=== PATIENT | male | born 1930 | race Caucasian/White ===

== ENCOUNTER 2019-07-10 15:23 | Inpatient (IN) | payer MEDICARE, MEDICAID ==
[~2019-07-10] VITALS: Ht 167.6 cm; Wt 64.4 kg
[2019-07-10 16:01] LABS: BASOPHILS # (AUTO) 0.1 K/uL (0.0-8.0); BASOPHILS % (AUTO) 0.9 % (0.0-2.0); EOSINOPHILS # (AUTO) 0.1 K/uL (0.0-0.7); EOSINOPHILS % (AUTO) 1.4 % (0.0-7.0); HEMATOCRIT 29.2 % (36.7-47.1); HEMOGLOBIN 9.6 g/dL (12.5-16.3); LYMPHOCYTES # (AUTO) 1.5 K/uL (20.0-40.0); LYMPHOCYTES % (AUTO) 23.1 % (20.5-51.5); MEAN CORPUSCULAR HEMOGLOBIN 26.3 uug (23.8-33.4); MEAN CORPUSCULAR HGB CONC 33 g/dL (32.5-36.3); MEAN CORPUSCULAR VOLUME 79.7 fL (73.0-96.2); MONOCYTES # (AUTO) 0.5 K/uL (2.0-10.0); NEUTROPHILS # (AUTO) 4.2 K/uL (1.8-8.9); NEUTROPHILS % (AUTO) 66.6 % (38.5-71.5); PLATELET COUNT (AUTO) 410 K/uL (152-348); RED BLOOD CELL COUNT(AUTO) 3.66 MIL/uL (4.06-5.63); WHITE BLOOD COUNT (AUTO) 6.3 K/uL (3.6-10.2)
[2019-07-10] MEDS ORDERED: DONE10TA44 PO (16:03)
[2019-07-10] MEDS ORDERED: MEMA10TA PO (16:03)
[2019-07-10] MEDS ORDERED: ARIP5TAB10 PO (16:03)
[2019-07-10] MEDS ORDERED: TEMA15CA PO (16:03)
[2019-07-10 16:05] LABS: CARBON DIOXIDE 26 mmol/L (21-32); CHLORIDE 109 mmol/L (98-107); CREATININE 1.5 mg/dL (0.6-1.3); GLUCOSE 101 mg/dL (74-106); POTASSIUM 3.7 mmol/L (3.5-5.1); UREA NITROGEN, BLOOD 20 mg/dL (7-18)
[2019-07-10 16:11] LABS: ETHANOL < 3 MG/DL (0-0)
[2019-07-10 16:15] LABS: ALANINE AMINOTRANSFERASE 12 U/L (16-63); ALKALINE PHOSPHATASE 70 U/L (50-136); ASPARTATE AMINOTRANSFERASE 14 U/L (15-37); BILIRUBIN,DIRECT 0.1 mg/dL (0.0-0.2); BILIRUBIN,TOTAL 0.4 mg/dL (0.2-1.0)
[2019-07-10 16:16] LABS: ACETAMINOPHEN < 2.0 ug/mL (10-30)
--- NOTE | 2019-07-10 16:24 | NUR ---
GRAND DAUGHTER AT BEDSIDE. Addendum: 07/10/19 at 1836 by JOSE FABI [phone]
[2019-07-10 16:27] LABS: *BILIRUBIN,URIN NEGATIVE (NEGATIVE); *BLOOD, URINE NEGATIVE (NEGATIVE); *CLARITY,URINE CLEAR (CLEAR); *COLOR,URINE YELLOW (YELLOW); *KETONES,URINE NEGATIVE (NEGATIVE); *UROBILINOGEN,URINE 0.2 E.U./dl (NORMAL); LEUKOCYTE ESTERASE ,URINE NEGATIVE (NEGATIVE); NITRITE, URINE NEGATIVE (NEGATIVE); UGLUCOSE NEGATIVE (NEGATIVE)
[2019-07-10 16:35] LABS: *AMPHETAMINE, URINE NEGATIVE (NEGATIVE); *BARBITURATE, URINE NEGATIVE (NEGATIVE); *CANNABINOID, URINE NEGATIVE (NEGATIVE); *COCCAINE, URINE NEGATIVE (NEGATIVE); *OPIATE, URINE NEGATIVE (NEGATIVE); *PHENCYCLIDINE SCREEN,URINE NEGATIVE (NEGATIVE)
[2019-07-10] MEDS ORDERED: IV NORMAL SALINE 500 ML BAG IV ONE (16:45)
--- NOTE | 2019-07-10 18:00 | NUR ---
PT DAUGHTER BROUGHT DINNER FOR PT.
--- NOTE | 2019-07-10 18:44 | NUR ---
PT TRANSFERED TO [facility] IN STABLE CONDITION. Addendum: 07/10/19 at 1847 by JOSE PT ACCOMPANED BY GRAND DAUGHTER
[2019-07-10] MEDS ORDERED: MAGNESIUM HYDROXIDE 30 ML LIQUID UDC PO PRN (19:45)
[2019-07-10] MEDS ORDERED: MAG HYDROX/AL HYDROX/SIMETH 30 ML LIQUID UDC PO PRN (19:45)
[2019-07-10] MEDS ORDERED: LORAZEPAM 0.5 MG TABLET PO PRN (19:45)
[2019-07-10] MEDS ORDERED: TEMAZEPAM 7.5 MG CAPSULE PO PRN (19:45)
[2019-07-10] MEDS ORDERED: ACETAMINOPHEN 325 MG TABLET PO PRN (19:45)
[2019-07-10 21:01] VITALS: BP 91/43
--- NOTE | 2019-07-10 22:00 | NUR ---
Admission Note: 89 y.o. U[place]ayan male (Uruguayan-speaking) brought to MHU from ER via wheelchair accompanied by ER staff and Pt family. Pt admitted on a 5150 for GD under the care of Dr Mckeon and Dr Bolaños with a dx of Psychosis. According to the 5150, Pt has been staying with his daughter as the primary caregiver the past 3 months, but is now unable to provide care d/t his aggression and unstable, erratic, confused behavior. Pt has an obsession with sharp objects, which have been removed by his daughter. Pt goes around the house cutting things, recently using a hatchet to cut objects. Pt has been eloping from home and unable to find his way home. Recently hospitalized at [facility] due to non-compliance with meds. Upon admission to the unit, Pt VS stable, denies pain, and in no apparent physical distress. Upon face to face evaluation, Pt is confrontational, agitated, argumentative, oppositional, and disoriented. With Uruguayan supervisor benzene refining present, Pt refused to sign any paperwork and demanded to �go home.� 5150 was explained to him with Uruguayan supervisor benzene refining that he is here involuntarily for 72 hours, and rules regarding unit and personal safety were explained to Pt. Staff explained to Pt that his belt, cell phone, and medication had to be placed in a safe, locked location. Pt stated he would not voluntarily give up his items, nor would he submit to any kind of body search or skin check. Security was called to wand Pt and assist with check of Pt�s clothing and contraband. With staff support, redirection and de-escalation, Pt reluctantly allowed himself to be searched and wanded, and allowed staff to retrieve the contraband items. A+Ox1 to self and knows he is in a hospital, but has poor insight into situation or reason for admission. Denies what is written on the Hold and exhibits some paranoia and stated staff are �just trying to take all of my things from me.� Affect is flat and guarded, speech is pressured, and mood is anxious and somewhat restless. Prn Restoril offered and refused, Pt remains restless. Paperwork co-signed with staff. Per family Pt has no access to firearms or any legal hx, unable to obtain smoking or substance use status. Skin assessment not completed at this time, Pt remains uncooperative with staff. Medical h/o dementia, anemia, renal insufficiency, BPH, throat CA, and umbilical hernia, NKA. Dr Mckeon and Dr Bolaños notified of admission, meds reconciled, orders received. Pt belongings inventoried, contraband placed in unit locker. Patient Rights handbook and Advisement given to Pt, rights and unit rule explained to Pt and Pt�s family. Pt oriented to the unit, the phone, the restrooms, and his room. Q 15 minute rounding initiated for safety.
[2019-07-11 07:30] VITALS: BP 133/43
[2019-07-11] MEDS: DIVALPROEX SPRINKLE 125 MG CAP.SPRINK PO SCH ×2 (13:45→17:00)
[2019-07-11 16:00] VITALS: BP 132/39
[2019-07-11 20:00] VITALS: BP 143/44
[2019-07-11] MEDS: risperiDONE-M 0.5 MG TAB.RAPDIS PO SCH (20:00)
[2019-07-11] MEDS: BENZTROPINE MESYLATE 0.5 MG TABLET PO SCH (20:00)
--- NOTE | 2019-07-12 07:19 | NUR ---
Fall Note: Pt found in the day room breaking the lock on the refrigerator. Pt refused to step away from the fridge and became aggressive when staff escorted him out of the room to his room. Pt jerked away from staff member, lost his balance, and hit his head on the wall on the way down to the floor. VS taken, initially 160/50, 65, then 141/46, 66, and finally 136/44, 63. Pt denies pain, nuero/circ intact. Dr Villegas notified, ordered neuro checks q [address] Mckeon notified and CT of the head ordered. Voicemail left for Pt's granddaughter Patsy. Remains at baseline mental status. Pt pacing around the unit currently, refuses to follow staff direction to sit for his own safety. Nursing bleach supervisor aware.
[2019-07-12 07:30] VITALS: BP 133/35
[2019-07-12] MEDS: DIVALPROEX SPRINKLE 125 MG CAP.SPRINK PO SCH ×3 (09:00→17:06)
[2019-07-12] MEDS: BENZTROPINE MESYLATE 0.5 MG TABLET PO SCH ×2 (11:05→20:30)
--- NOTE | 2019-07-12 15:13 | NUR ---
Initial discharge note Patient currently lives with his daughter, Tessa Perez [[phone]] at her home [ [address], [place] [address]; [phone]]. Per patient granddaughter, Patsy Aquino [[phone]], they would like locked placement for patient which is for his best interest. SW will continue to work with patient, family, and MD to form a safe and appropriate discharge plan. SW will form a safe a proper discharge plan.
[2019-07-12 16:00] VITALS: BP 138/44
--- NOTE | 2019-07-12 20:00 | NUR ---
RECEIVED PATIENT IN THE HALLWAY, HE IS NOTED SPEAKING IN GREEK. NOTED HYPERVERBAL, ANXIOUS, DEMANDING TO TALK TO HER DAUGHTER, EASILY IRRITABLE. POOR INSIGHT INTO HIS ADMISSION TO MHU. PATIENT WAS GIVEN THE PHONE TO TALK TO DAUGHTER. AFTER TALKING TO DAUGHTER HE WAS ABLE TO CALM DOWN. SAFETY AND FALL PRECAUTION IN PLACE. PATIENT IS REASSURED FOR HIS SAFETY. WILL CONTINUE TO MONITOR.
[2019-07-12 20:04] VITALS: BP 143/40
[2019-07-12] MEDS: risperiDONE-M 0.5 MG TAB.RAPDIS PO SCH (20:28)
--- NOTE | 2019-07-12 20:40 | NUR ---
PATIENT WAS SEEN BY DR ELY. HE WAS ABLE TO TAKE HIS QHS MEDICATION. HE IS NOTED CALM AT THIS TIME. WILL CONTINUE TO MONITOR.
--- NOTE | 2019-07-12 20:45 | NUR ---
PATIENT WAS SEEN BTY
[2019-07-13 07:30] VITALS: BP 110/42
[2019-07-13] MEDS: DIVALPROEX SPRINKLE 125 MG CAP.SPRINK PO SCH ×3 (09:11→17:57)
[2019-07-13 16:00] VITALS: BP 139/50
[2019-07-13 20:20] VITALS: BP 140/50
[2019-07-13] MEDS: risperiDONE-M 0.5 MG TAB.RAPDIS PO SCH (20:41)
[2019-07-13] MEDS: BENZTROPINE MESYLATE 0.5 MG TABLET PO SCH (20:41)
[2019-07-14 07:30] VITALS: BP 110/36
[2019-07-14] MEDS: DIVALPROEX SPRINKLE 125 MG CAP.SPRINK PO SCH ×3 (09:18→16:42)
[2019-07-14 16:00] VITALS: BP 127/34
[2019-07-14 20:23] VITALS: BP 148/40
[2019-07-14] MEDS: risperiDONE-M 0.5 MG TAB.RAPDIS PO SCH (21:01)
[2019-07-14] MEDS: BENZTROPINE MESYLATE 0.5 MG TABLET PO SCH (21:01)
[2019-07-15 07:30] VITALS: BP 147/52
[2019-07-15] MEDS: DIVALPROEX SPRINKLE 125 MG CAP.SPRINK PO SCH ×3 (08:38→17:35)
[2019-07-15 16:00] VITALS: BP 146/42
[2019-07-15] MEDS: BENZTROPINE MESYLATE 0.5 MG TABLET PO SCH (19:57)
[2019-07-15] MEDS: risperiDONE-M 0.5 MG TAB.RAPDIS PO SCH (19:57)
[2019-07-15 20:29] VITALS: BP 145/82
[2019-07-16 07:39] LABS: BASOPHILS # (AUTO) 0.1 K/uL (0.0-8.0); BASOPHILS % (AUTO) 0.8 % (0.0-2.0); EOSINOPHILS # (AUTO) 0.1 K/uL (0.0-0.7); EOSINOPHILS % (AUTO) 1.4 % (0.0-7.0); HEMATOCRIT 29.3 % (36.7-47.1); HEMOGLOBIN 9.7 g/dL (12.5-16.3); LYMPHOCYTES # (AUTO) 1.1 K/uL (20.0-40.0); LYMPHOCYTES % (AUTO) 16.1 % (20.5-51.5); MEAN CORPUSCULAR HEMOGLOBIN 26.9 uug (23.8-33.4); MEAN CORPUSCULAR HGB CONC 33 g/dL (32.5-36.3); MEAN CORPUSCULAR VOLUME 81.5 fL (73.0-96.2); MONOCYTES # (AUTO) 0.4 K/uL (2.0-10.0); MONOCYTES % (AUTO) 6.7 % (0.0-11.0); PLATELET COUNT (AUTO) 375 K/uL (152-348); WHITE BLOOD COUNT (AUTO) 6.7 K/uL (3.6-10.2)
[2019-07-16 07:45] LABS: IRON, SERUM 41 ug/dL (50-175)
[2019-07-16 07:53] VITALS: BP 141/49
[2019-07-16 08:24] LABS: THYROID STIMULATING HORMONE 3.048 mIU/mL (0.358-3.740)
[2019-07-16 08:28] LABS: ALANINE AMINOTRANSFERASE 8 U/L (16-63); ALKALINE PHOSPHATASE 70 U/L (50-136); ASPARTATE AMINOTRANSFERASE 15 U/L (15-37); BILIRUBIN,TOTAL 0.5 mg/dL (0.2-1.0); CARBON DIOXIDE 28 mmol/L (21-32); CHLORIDE 109 mmol/L (98-107); CHOLESTEROL 181 mg/dL (<200); CREATININE 1.2 mg/dL (0.6-1.3); FERRITIN 15 ng/mL (26-388); GLUCOSE 89 mg/dL (74-106); HDL CHOLESTEROL 44 mg/dL (40-60); TOTAL PROTEIN, SERUM 6.2 g/dL (6.4-8.2); TRIGLYCERIDES 120 MG/DL (30-150); UREA NITROGEN, BLOOD 19 mg/dL (7-18); URIC ACID 5.9 mg/dL (3.5-7.2)
[2019-07-16] MEDS: DIVALPROEX SPRINKLE 125 MG CAP.SPRINK PO SCH ×3 (08:30→16:23)
[2019-07-16 08:52] LABS: CREATINE KINASE, TOTAL 47 U/L (39-308)
[2019-07-16 15:44] VITALS: BP 119/48
[2019-07-16] MEDS: BENZTROPINE MESYLATE 0.5 MG TABLET PO SCH (19:55)
[2019-07-16] MEDS: risperiDONE-M 0.5 MG TAB.RAPDIS PO SCH (19:55)
[2019-07-16 20:26] VITALS: BP 149/43
[2019-07-17 07:42] VITALS: BP 110/48
[2019-07-17] MEDS: AMLODIPINE 2.5 MG TABLET PO SCH (09:00)
[2019-07-17] MEDS: FAMOTIDINE 20 MG TABLET PO SCH (09:05)
[2019-07-17] MEDS: DIVALPROEX SPRINKLE 125 MG CAP.SPRINK PO SCH ×3 (09:05→16:36)
[2019-07-17] MEDS: CYANOCOBALAMIN 1,000 MCG TABLET PO SCH (09:05)
[2019-07-17] MEDS: MULTIVITAMINS,THERAPEUTIC TABLET PO SCH (09:05)
[2019-07-17 15:48] VITALS: BP 168/48
[2019-07-17 20:00] VITALS: BP 133/45
[2019-07-17] MEDS ORDERED: risperiDONE-M 0.5 MG TAB.RAPDIS PO SCH (20:00)
[2019-07-17] MEDS: BENZTROPINE MESYLATE 0.5 MG TABLET PO SCH (20:47)
[2019-07-18 07:30] VITALS: BP 124/47
[2019-07-18 08:06] LABS: A/G RATIO 1.2 (0.7-1.7); ALBUMIN 3.1 g/dL (2.9-4.4); ALPHA-1-GLOBULIN 0.2 g/dL (0.0-0.4); ALPHA-2-GLOBULIN 0.7 g/dL (0.4-1.0); BETA GLOBULIN 0.9 g/dL (0.7-1.3); GAMMA GLOBULIN 0.8 g/dL (0.4-1.8); GLOBULIN, TOTAL 2.6 g/dL (2.2-3.9); M-SPIKE Not Observed g/dL (Not Observed)
[2019-07-18] MEDS: MULTIVITAMINS,THERAPEUTIC TABLET PO SCH (08:38)
[2019-07-18] MEDS: DIVALPROEX SPRINKLE 125 MG CAP.SPRINK PO SCH ×3 (08:38→16:03)
[2019-07-18] MEDS: FAMOTIDINE 20 MG TABLET PO SCH (08:38)
[2019-07-18] MEDS: CYANOCOBALAMIN 1,000 MCG TABLET PO SCH (08:38)
[2019-07-18] MEDS: AMLODIPINE 2.5 MG TABLET PO SCH (08:39)
[2019-07-18 16:00] VITALS: BP 135/45
--- NOTE | 2019-07-18 16:40 | NUR ---
PATIENT AOX3, DENIES PAIN, DENIES ANY DISTRESS BEEN COOPERATIVE AND COMPLIANT, PATIENT DENIES SI AND HI, VISITED BY GRAND DAUGHTER
[2019-07-18 20:46] VITALS: BP 140/98
[2019-07-18] MEDS: BENZTROPINE MESYLATE 0.5 MG TABLET PO SCH (20:46)
[2019-07-18] MEDS: risperiDONE-M 0.5 MG TAB.RAPDIS PO SCH (20:46)
[2019-07-19 06:54] LABS: BASOPHILS % (AUTO) 0.8 % (0.0-2.0); EOSINOPHILS # (AUTO) 0.1 K/uL (0.0-0.7); EOSINOPHILS % (AUTO) 2.3 % (0.0-7.0); HEMATOCRIT 29.3 % (36.7-47.1); HEMOGLOBIN 9.5 g/dL (12.5-16.3); LYMPHOCYTES # (AUTO) 1.2 K/uL (20.0-40.0); LYMPHOCYTES % (AUTO) 19.9 % (20.5-51.5); MEAN CORPUSCULAR HEMOGLOBIN 26.5 uug (23.8-33.4); MEAN CORPUSCULAR HGB CONC 33 g/dL (32.5-36.3); MEAN CORPUSCULAR VOLUME 81.7 fL (73.0-96.2); MONOCYTES # (AUTO) 0.6 K/uL (2.0-10.0); MONOCYTES % (AUTO) 10.9 % (0.0-11.0); NEUTROPHILS # (AUTO) 3.9 K/uL (1.8-8.9); NEUTROPHILS % (AUTO) 66.1 % (38.5-71.5); PLATELET COUNT (AUTO) 304 K/uL (152-348); RED BLOOD CELL COUNT(AUTO) 3.58 MIL/uL (4.06-5.63)
[2019-07-19 07:10] LABS: CARBON DIOXIDE 27 mmol/L (21-32); CHLORIDE 109 mmol/L (98-107); CREATININE 1.2 mg/dL (0.6-1.3); GLUCOSE 94 mg/dL (74-106); PHOSPHOROUS 3.5 mg/dL (2.5-4.9); POTASSIUM 3.7 mmol/L (3.5-5.1); UREA NITROGEN, BLOOD 24 mg/dL (7-18)
[2019-07-19 07:30] VITALS: BP 118/36
[2019-07-19] MEDS: DIVALPROEX SPRINKLE 125 MG CAP.SPRINK PO SCH ×4 (08:57→21:17)
[2019-07-19] MEDS: FAMOTIDINE 20 MG TABLET PO SCH (08:57)
[2019-07-19] MEDS: CYANOCOBALAMIN 1,000 MCG TABLET PO SCH (08:57)
[2019-07-19] MEDS: AMLODIPINE 2.5 MG TABLET PO SCH (08:58)
[2019-07-19] MEDS: MULTIVITAMINS,THERAPEUTIC TABLET PO SCH (09:00)
[2019-07-19 16:00] VITALS: BP 130/38
--- NOTE | 2019-07-19 16:21 | NUR ---
FIREARMS REPORT: Weatherization Coordinator completed and submitted a [employer] firearms report for 5250 grave disability certification. A copy of report has been placed in patient chart.
[2019-07-19 20:00] VITALS: BP 141/56
[2019-07-19] MEDS: risperiDONE-M 0.5 MG TAB.RAPDIS PO SCH (20:12)
[2019-07-19] MEDS: BENZTROPINE MESYLATE 0.5 MG TABLET PO SCH (20:12)
--- NOTE | 2019-07-19 21:34 | NUR ---
RECEIVED PATIENT IN ROOM AWAKE, PATIENT IS CALM AND PLEASANT UPON APPROACH. HE IS GERMAN SPEAKER. CONTINUE TO BE COMPLIANT WITH MEDICATION. SAFETY AND FALL PRECAUTION IN PLACE. WILL CONTINUE TO MONITOR. BED IN LOWEST POSITION, BED LOCKED, AND BED ALARM ON WHILE IN BE.
[2019-07-20 07:30] VITALS: BP 122/45
[2019-07-20] MEDS: FAMOTIDINE 20 MG TABLET PO SCH (09:00)
[2019-07-20] MEDS: MULTIVITAMINS,THERAPEUTIC TABLET PO SCH (09:00)
[2019-07-20] MEDS: CYANOCOBALAMIN 1,000 MCG TABLET PO SCH (09:00)
[2019-07-20] MEDS: risperiDONE-M 0.5 MG TAB.RAPDIS PO SCH ×2 (09:00→20:00)
[2019-07-20] MEDS: AMLODIPINE 2.5 MG TABLET PO SCH (09:13)
[2019-07-20] MEDS: DIVALPROEX SPRINKLE 125 MG CAP.SPRINK PO SCH ×4 (09:14→20:38)
--- NOTE | 2019-07-20 11:00 | NUR ---
Gps/Fire Ranger-Pacing back and forth the hallway, selective of his routine am meds. Encouraged to eat in the dinning room, offered fluids
[2019-07-20 16:00] VITALS: BP 127/47
[2019-07-20] MEDS: BENZTROPINE MESYLATE 0.5 MG TABLET PO SCH (20:00)
[2019-07-20 20:35] VITALS: BP 136/46
--- NOTE | 2019-07-20 21:19 | NUR ---
Patient refused to take PM medication of Cogentin and Risperdal. Patient did however agree to take the Depakote. Otherwise, resting in bed, with no distress noted.
--- NOTE | 2019-07-21 06:04 | NUR ---
Patient slept 7 hours. Up early this am. Had a shower and has been calm and cooperative . No distress noted, back in room.
[2019-07-21 07:45] VITALS: BP 152/50
[2019-07-21] MEDS: CYANOCOBALAMIN 1,000 MCG TABLET PO SCH (09:00)
[2019-07-21] MEDS: MULTIVITAMINS,THERAPEUTIC TABLET PO SCH (09:00)
[2019-07-21] MEDS: AMLODIPINE 2.5 MG TABLET PO SCH (09:00)
[2019-07-21] MEDS: risperiDONE-M 0.5 MG TAB.RAPDIS PO SCH ×2 (09:00→20:00)
[2019-07-21] MEDS: FAMOTIDINE 20 MG TABLET PO SCH (09:00)
[2019-07-21] MEDS: DIVALPROEX SPRINKLE 125 MG CAP.SPRINK PO SCH ×3 (09:02→17:06)
[2019-07-21 16:02] VITALS: BP 95/44
[2019-07-21] MEDS: BENZTROPINE MESYLATE 0.5 MG TABLET PO SCH (20:00)
[2019-07-21 20:18] VITALS: BP 159/57
--- NOTE | 2019-07-21 20:51 | NUR ---
PATIENT REFUSED TO TAKE RISPERDAL AND COGENTIN THIS PM. CONTINUING TO ENCOURAGE MEDICATION COMPLIANCE WITH NO SUCCESS. PATIENT IN BED AT THIS TIME, NO DISTRESS NOTED.
[2019-07-21] MEDS ORDERED: VALPROIC ACID 250 MG CAPSULE PO SCH (21:00)
--- NOTE | 2019-07-22 06:07 | NUR ---
Patient slept 7 hours and is still asleep. No distress noted of any kind.
[2019-07-22 07:42] VITALS: BP 127/43
[2019-07-22] MEDS ORDERED: VALPROIC ACID 250 MG/5 ML LIQUID UDC PO SCH ×2 (08:00→21:00)
[2019-07-22] MEDS: CYANOCOBALAMIN 1,000 MCG TABLET PO SCH (08:59)
[2019-07-22] MEDS: risperiDONE-M 0.5 MG TAB.RAPDIS PO SCH ×2 (08:59→20:05)
[2019-07-22] MEDS: AMLODIPINE 2.5 MG TABLET PO SCH (08:59)
[2019-07-22] MEDS: VALPROIC ACID 250 MG/5 ML LIQUID UDC PO SCH ×2 (08:59→12:34)
[2019-07-22] MEDS: MULTIVITAMINS,THERAPEUTIC TABLET PO SCH (08:59)
[2019-07-22] MEDS: FAMOTIDINE 20 MG TABLET PO SCH (08:59)
[2019-07-22] MEDS ORDERED: BISACODYL 5 MG TABLET.DR PO PRN (14:45)
[2019-07-22 16:33] VITALS: BP 145/47
[2019-07-22] MEDS: BENZTROPINE MESYLATE 0.5 MG TABLET PO SCH (20:03)
[2019-07-22 20:04] VITALS: BP 145/45
--- NOTE | 2019-07-22 21:44 | NUR ---
RECEIVED PATIENT IN BED,SAO TOMEAN SPEAKING BUT COULD SPEAK A LITTLE PALAUAN PLUS GESTURES TO MAKE NEEDS KNOWN. EASILY IRRITABLE WHEN MEEDS ARE NOT MET RIGHT AWAY. TOOK HIM A WHILE TO TAKE THE RISPERDAL BUT WAS COMPLIANT WITH OTHER MEDS. VISUAL CHECKS MADE ON HIM FOR SAFETY. WILL CONTINUE TO MONITOR.
--- NOTE | 2019-07-23 06:47 | NUR ---
SLEPT WELL FOR APPROX.07;00 HOURS.
[2019-07-23 07:30] VITALS: BP_SYST 134; BP_DIAS 42; BP_DIAS 92
--- NOTE | 2019-07-23 08:21 | NUR ---
Discharge note Patient will be discharged to [facility] [[address] [facility] [address], [place] [address]; ]. Please arrange Ambulance transportation for patient at 11:00am. Spoke with Kelly [Admin Coordinator] at the facility who states they are ready to accept the patient today. Patient is aware and agreeable with discharge plans. Patient is alert and oriented x4, is able to plan for self-care, and denies any SI/HI. Tessa, patient�s daughter [[phone]] and Patsy, patient�s granddaughter [[phone]] made aware and agreeable with discharge plans. Patient will follow-up at the facility with Dr. Mckeon (Psychiatrist) and Dr. Ocampo (Warehouse Coordinator). Patient was provided with outpatient mental health resources to [facility] Crisis Line , and the National Suicide Prevention Lifeline .
[2019-07-23] MEDS: MULTIVITAMINS,THERAPEUTIC TABLET PO SCH (09:00)
[2019-07-23] MEDS: FAMOTIDINE 20 MG TABLET PO SCH (09:00)
[2019-07-23] MEDS: CYANOCOBALAMIN 1,000 MCG TABLET PO SCH (09:00)
[2019-07-23] MEDS: AMLODIPINE 2.5 MG TABLET PO SCH (09:00)
[2019-07-23] MEDS: risperiDONE-M 0.5 MG TAB.RAPDIS PO SCH (09:01)
[2019-07-23] MEDS: VALPROIC ACID 250 MG/5 ML LIQUID UDC PO SCH ×2 (09:01→13:00)
--- NOTE | 2019-07-23 13:45 | NUR ---
GPS: Nursing Notes: Discharge Notes: Patient is awake and responding to his name, cooperative with nursing care, compliant with his psych medications, following staff directions, following staff directions, denies any SI/HI, denies any AH/VH, denies any pain or discomfort, denies any SOB, discharge to [facility]. SNF at [id number] [place] [id number] , report given to JOVANI Morrison corn crop supervisor, transported to facility via ambulance, took all his belonging with him. Tessa, patient�s daughter [[phone]] and Patsy, patient�s granddaughter [[phone]] made aware and agreeable with discharge plans. Patient will follow-up at the facility with Dr. Mckeon (Psychiatrist) and Dr. Ocampo (Network Applications Specialist). Patient was provided with outpatient mental health resources to [facility] Crisis Line , and the National Suicide Prevention Lifeline .
== END 2019-07-23 14:00 | DRG 885 ==
LOC: ER 15:23 → GPS 18:40
PROVIDERS: ADMIT Psychiatry & Neurology Psychosomatic Medicine; ATTEND Internal Medicine
DX: F29 Unspecified psychosis not due to a substance or known physiological condition (principal); F01.51 Vascular dementia, unspecified severity, with behavioral disturbance; N17.0 Acute kidney failure with tubular necrosis; E46 Unspecified protein-calorie malnutrition; G93.40 Encephalopathy, unspecified; Z91.83 Wandering in diseases classified elsewhere; D64.9 Anemia, unspecified; N40.0 Benign prostatic hyperplasia without lower urinary tract symptoms; Z91.14 Patient's other noncompliance with medication regimen; F41.9 Anxiety disorder, unspecified; N40.1 Benign prostatic hyperplasia with lower urinary tract symptoms; F42.9 Obsessive-compulsive disorder, unspecified; G31.9 Degenerative disease of nervous system, unspecified; Z85.038 Personal history of other malignant neoplasm of large intestine; Z85.819 Personal history of malignant neoplasm of unspecified site of lip, oral cavity, and pharynx; Z87.891 Personal history of nicotine dependence; Z92.3 Personal history of irradiation; Z92.21 Personal history of antineoplastic chemotherapy; Z91.19 Patient's noncompliance with other medical treatment and regimen; K42.9 Umbilical hernia without obstruction or gangrene; E53.8 Deficiency of other specified B group vitamins; D50.9 Iron deficiency anemia, unspecified
CPT/HCPCS: 36415; 70030-TC; 70450; 71045; 80164; 80307; 82378; 83550; 83735; 83970; 84100; 84153; 84155; 84165; 84443; 84550; 85025; 93005; A4663; G0480; G0480-TC; J7040

== ENCOUNTER 2019-09-09 10:49 | Inpatient (IN) | payer MEDICARE, MEDICAID ==
[~2019-09-09] VITALS: Ht 172.7 cm; Wt 66.7 kg
[~2019-09-09 10:49] MED LIST: ARIP5TAB10 PO
[2019-09-09 11:36] LABS: CARBON DIOXIDE 28 mmol/L (21-32); CHLORIDE 108 mmol/L (98-107); CREATININE 1.5 mg/dL (0.6-1.3); GLUCOSE 88 mg/dL (74-106); UREA NITROGEN, BLOOD 29 mg/dL (7-18)
[2019-09-09 11:37] LABS: BASOPHILS % (AUTO) 0.6 % (0.0-2.0); EOSINOPHILS # (AUTO) 0.1 K/uL (0.0-0.7); EOSINOPHILS % (AUTO) 1.1 % (0.0-7.0); HEMATOCRIT 29.3 % (36.7-47.1); HEMOGLOBIN 9.6 g/dL (12.5-16.3); LYMPHOCYTES % (AUTO) 16.4 % (20.5-51.5); MEAN CORPUSCULAR HEMOGLOBIN 26.7 uug (23.8-33.4); MEAN CORPUSCULAR HGB CONC 33 g/dL (32.5-36.3); MEAN CORPUSCULAR VOLUME 81.3 fL (73.0-96.2); MONOCYTES # (AUTO) 0.7 K/uL (2.0-10.0); MONOCYTES % (AUTO) 11.1 % (0.0-11.0); NEUTROPHILS # (AUTO) 4.3 K/uL (1.8-8.9); NEUTROPHILS % (AUTO) 70.8 % (38.5-71.5); PLATELET COUNT (AUTO) 324 K/uL (152-348); RED BLOOD CELL COUNT(AUTO) 3.61 MIL/uL (4.06-5.63)
[2019-09-09 11:39] LABS: *BILIRUBIN,URIN NEGATIVE (NEGATIVE); *BLOOD, URINE NEGATIVE (NEGATIVE); *CLARITY,URINE CLEAR (CLEAR); *COLOR,URINE YELLOW (YELLOW); *KETONES,URINE NEGATIVE (NEGATIVE); *UROBILINOGEN,URINE 0.2 E.U./dl (NORMAL); LEUKOCYTE ESTERASE ,URINE 1+ (NEGATIVE); NITRITE, URINE NEGATIVE (NEGATIVE); UGLUCOSE NEGATIVE (NEGATIVE)
[2019-09-09 11:41] LABS: ETHANOL < 3 MG/DL (0-0)
[2019-09-09 11:42] LABS: ACETAMINOPHEN < 2.0 ug/mL (10-30); ALANINE AMINOTRANSFERASE 22 U/L (16-63); ALKALINE PHOSPHATASE 107 U/L (50-136); ASPARTATE AMINOTRANSFERASE 14 U/L (15-37); BILIRUBIN,DIRECT 0.1 mg/dL (0.0-0.2); BILIRUBIN,TOTAL 0.2 mg/dL (0.2-1.0); TOTAL PROTEIN, SERUM 6.7 g/dL (6.4-8.2)
[2019-09-09 11:47] LABS: BACTERIA,URINE FEW /HPF (NONE SEEN); RBC,URINE NONE SEEN /HPF (0-3); SQUAMOUS EPITHELIAL CELL,UR FEW /HPF (NONE SEEN)
[2019-09-09 11:49] LABS: *AMPHETAMINE, URINE NEGATIVE (NEGATIVE); *BARBITURATE, URINE NEGATIVE (NEGATIVE); *CANNABINOID, URINE NEGATIVE (NEGATIVE); *COCCAINE, URINE NEGATIVE (NEGATIVE); *OPIATE, URINE NEGATIVE (NEGATIVE); *PHENCYCLIDINE SCREEN,URINE NEGATIVE (NEGATIVE)
[2019-09-09] MEDS ORDERED: TEMAZEPAM 7.5 MG CAPSULE PO PRN (13:15)
[2019-09-09] MEDS ORDERED: BLOOD SUGAR DIAGNOSTIC 1 EACH STRIP VI ONE (13:15)
[2019-09-09] MEDS ORDERED: ACETAMINOPHEN 325 MG TABLET PO PRN (13:15)
[2019-09-09] MEDS ORDERED: MAG HYDROX/AL HYDROX/SIMETH 30 ML LIQUID UDC PO PRN (13:15)
[2019-09-09] MEDS ORDERED: MAGNESIUM HYDROXIDE 30 ML LIQUID UDC PO PRN (13:15)
[2019-09-09 13:29] VITALS: BP 130/47
[2019-09-09 16:10] VITALS: BP 124/45
[2019-09-09 20:00] VITALS: BP 120/43
[2019-09-10 07:30] VITALS: BP 126/40
[2019-09-10] MEDS: risperiDONE-M 0.5 MG TAB.RAPDIS PO SCH ×3 (09:00→16:31)
[2019-09-10] MEDS ORDERED: ARIPIPRAZOLE 5 MG TABLET PO SCH (11:00)
[2019-09-10 15:21] VITALS: BP 125/44
[2019-09-10 20:00] VITALS: BP 139/46
[2019-09-10] MEDS: SENNOSIDES 1 TABLET PO SCH (22:25)
[2019-09-10] MEDS: VALPROIC ACID 250 MG/5 ML LIQUID UDC PO SCH (22:25)
[2019-09-11 07:30] VITALS: BP 125/50
[2019-09-11] MEDS: risperiDONE-M 0.5 MG TAB.RAPDIS PO SCH ×3 (08:40→20:16)
[2019-09-11] MEDS: OMEGA-3 FATTY ACIDS/FISH OIL CAPSULE PO SCH (08:40)
[2019-09-11] MEDS: CEphaleXIN 500 MG CAPSULE PO SCH ×2 (13:00→21:13)
[2019-09-11 15:06] VITALS: BP 127/42
[2019-09-11 15:19] LABS: *OCCULT BLOOD STOOL POSITIVE (NEGATIVE)
[2019-09-11 19:57] VITALS: BP 120/48
[2019-09-11] MEDS: SENNOSIDES 1 TABLET PO SCH (20:16)
[2019-09-11] MEDS: VALPROIC ACID 250 MG/5 ML LIQUID UDC PO SCH (20:16)
[2019-09-12] MEDS: CEphaleXIN 500 MG CAPSULE PO SCH ×4 (05:56→21:39)
[2019-09-12 07:48] VITALS: BP 145/51
[2019-09-12] MEDS: OMEGA-3 FATTY ACIDS/FISH OIL CAPSULE PO SCH (08:31)
[2019-09-12] MEDS: risperiDONE-M 0.5 MG TAB.RAPDIS PO SCH ×4 (08:31→21:24)
[2019-09-12] MEDS: FERROUS SULFATE 325 MG TABEC PO SCH ×3 (09:42→21:24)
[2019-09-12 16:34] VITALS: BP 113/80
[2019-09-12 21:00] VITALS: BP 137/48
[2019-09-12] MEDS: VALPROIC ACID 250 MG/5 ML LIQUID UDC PO SCH (21:23)
[2019-09-12] MEDS: SENNOSIDES 1 TABLET PO SCH (21:23)
[2019-09-13] MEDS: CEphaleXIN 500 MG CAPSULE PO SCH ×4 (05:42→21:00)
[2019-09-13 07:30] VITALS: BP 140/45
[2019-09-13] MEDS: FERROUS SULFATE 325 MG TABEC PO SCH ×2 (08:20→20:51)
[2019-09-13] MEDS: OMEGA-3 FATTY ACIDS/FISH OIL CAPSULE PO SCH (08:20)
[2019-09-13] MEDS: risperiDONE-M 0.5 MG TAB.RAPDIS PO SCH ×3 (08:20→20:51)
[2019-09-13] MEDS: LORAZEPAM 1 MG TABLET PO PRN ×2 (10:32→23:59)
[2019-09-13 15:57] VITALS: BP 116/44
[2019-09-13] MEDS: SENNOSIDES 1 TABLET PO SCH (20:59)
[2019-09-13 21:00] VITALS: BP 122/45
[2019-09-13] MEDS ORDERED: VALPROIC ACID 250 MG/5 ML LIQUID UDC PO SCH (21:00)
[2019-09-14 07:30] VITALS: BP 134/58
[2019-09-14] MEDS: FERROUS SULFATE 325 MG TABEC PO SCH ×2 (08:07→20:20)
[2019-09-14] MEDS: OMEGA-3 FATTY ACIDS/FISH OIL CAPSULE PO SCH (08:07)
[2019-09-14] MEDS: risperiDONE-M 0.5 MG TAB.RAPDIS PO SCH ×3 (08:07→20:20)
[2019-09-14 16:47] VITALS: BP 110/52
[2019-09-14 17:59] LABS: CARBON DIOXIDE 28 mmol/L (21-32); CHLORIDE 106 mmol/L (98-107); CREATININE 1.5 mg/dL (0.6-1.3); GLUCOSE 85 mg/dL (74-106); POTASSIUM 3.8 mmol/L (3.5-5.1); UREA NITROGEN, BLOOD 16 mg/dL (7-18)
[2019-09-14 18:02] LABS: BASOPHILS % (AUTO) 0.4 % (0.0-2.0); EOSINOPHILS % (AUTO) 0.5 % (0.0-7.0); HEMATOCRIT 28.1 % (36.7-47.1); HEMOGLOBIN 9.1 g/dL (12.5-16.3); LYMPHOCYTES # (AUTO) 1.2 K/uL (20.0-40.0); LYMPHOCYTES % (AUTO) 15.7 % (20.5-51.5); MEAN CORPUSCULAR HEMOGLOBIN 25.9 uug (23.8-33.4); MEAN CORPUSCULAR HGB CONC 32 g/dL (32.5-36.3); MEAN CORPUSCULAR VOLUME 80.4 fL (73.0-96.2); MONOCYTES # (AUTO) 0.9 K/uL (2.0-10.0); MONOCYTES % (AUTO) 12.2 % (0.0-11.0); NEUTROPHILS # (AUTO) 5.5 K/uL (1.8-8.9); NEUTROPHILS % (AUTO) 71.2 % (38.5-71.5); PLATELET COUNT (AUTO) 282 K/uL (152-348); WHITE BLOOD COUNT (AUTO) 7.7 K/uL (3.6-10.2)
[2019-09-14 18:05] LABS: ALANINE AMINOTRANSFERASE 11 U/L (16-63); ALKALINE PHOSPHATASE 78 U/L (50-136); ASPARTATE AMINOTRANSFERASE 10 U/L (15-37); BILIRUBIN,TOTAL 0.7 mg/dL (0.2-1.0); TOTAL PROTEIN, SERUM 6.2 g/dL (6.4-8.2)
[2019-09-14 20:06] VITALS: BP 111/45
[2019-09-14] MEDS: SENNOSIDES 1 TABLET PO SCH (20:20)
[2019-09-14] MEDS ORDERED: VALPROIC ACID 250 MG/5 ML LIQUID UDC PO SCH (21:00)
[2019-09-15] MEDS: TOBRAMYCIN/DEXAMETH OPHT DROP 2.5 ML BOTTLE RIGHTEYE SCH ×5 (05:27→23:14)
[2019-09-15 08:32] VITALS: BP 127/50
[2019-09-15] MEDS: OMEGA-3 FATTY ACIDS/FISH OIL CAPSULE PO SCH (09:08)
[2019-09-15] MEDS: risperiDONE-M 0.5 MG TAB.RAPDIS PO SCH ×3 (09:08→20:15)
[2019-09-15] MEDS: FERROUS SULFATE 325 MG TABEC PO SCH ×2 (09:08→20:15)
[2019-09-15 11:53] LABS: BASOPHILS % (AUTO) 0.8 % (0.0-2.0); EOSINOPHILS # (AUTO) 0.1 K/uL (0.0-0.7); EOSINOPHILS % (AUTO) 1.3 % (0.0-7.0); HEMATOCRIT 29.1 % (36.7-47.1); HEMOGLOBIN 9.3 g/dL (12.5-16.3); LYMPHOCYTES # (AUTO) 0.9 K/uL (20.0-40.0); LYMPHOCYTES % (AUTO) 16.2 % (20.5-51.5); MEAN CORPUSCULAR HEMOGLOBIN 26.1 uug (23.8-33.4); MEAN CORPUSCULAR HGB CONC 32 g/dL (32.5-36.3); MEAN CORPUSCULAR VOLUME 81.5 fL (73.0-96.2); MONOCYTES # (AUTO) 0.9 K/uL (2.0-10.0); MONOCYTES % (AUTO) 15.9 % (0.0-11.0); NEUTROPHILS # (AUTO) 3.8 K/uL (1.8-8.9); NEUTROPHILS % (AUTO) 65.8 % (38.5-71.5); PLATELET COUNT (AUTO) 277 K/uL (152-348); RED BLOOD CELL COUNT(AUTO) 3.57 MIL/uL (4.06-5.63); WHITE BLOOD COUNT (AUTO) 5.8 K/uL (3.6-10.2)
[2019-09-15 12:03] LABS: ALANINE AMINOTRANSFERASE 10 U/L (16-63); ALKALINE PHOSPHATASE 77 U/L (50-136); ASPARTATE AMINOTRANSFERASE 8 U/L (15-37); BILIRUBIN,TOTAL 0.4 mg/dL (0.2-1.0); CARBON DIOXIDE 30 mmol/L (21-32); CHLORIDE 107 mmol/L (98-107); CREATININE 1.5 mg/dL (0.6-1.3); GLUCOSE 76 mg/dL (74-106); POTASSIUM 3.9 mmol/L (3.5-5.1); TOTAL PROTEIN, SERUM 6.3 g/dL (6.4-8.2); UREA NITROGEN, BLOOD 16 mg/dL (7-18)
[2019-09-15 12:23] LABS: EOSINOPHILS % (MANUAL) 4 % (0-8); LYMPHOCYTES % (MANUAL) 20 % (20-40); MONOCYTES % (MANUAL) 14 % (2-10); NEUTROPHILS % (MANUAL) 62 % (42-75)
[2019-09-15 17:14] VITALS: BP 138/51
[2019-09-15] MEDS: SENNOSIDES 1 TABLET PO SCH (20:14)
[2019-09-15 20:18] VITALS: BP 117/49
[2019-09-15] MEDS ORDERED: VALPROIC ACID 250 MG/5 ML LIQUID UDC PO SCH (21:00)
[2019-09-16] MEDS: TOBRAMYCIN/DEXAMETH OPHT DROP 2.5 ML BOTTLE RIGHTEYE SCH ×3 (05:17→17:01)
[2019-09-16] MEDS: FERROUS SULFATE 325 MG TABEC PO SCH ×2 (08:12→20:00)
[2019-09-16] MEDS: OMEGA-3 FATTY ACIDS/FISH OIL CAPSULE PO SCH (08:12)
[2019-09-16] MEDS: risperiDONE-M 0.5 MG TAB.RAPDIS PO SCH ×3 (08:13→20:00)
[2019-09-16 08:23] VITALS: BP 134/40
[2019-09-16 18:13] VITALS: BP 112/50
[2019-09-16] MEDS: VALPROIC ACID 250 MG/5 ML LIQUID UDC PO SCH (20:00)
[2019-09-16] MEDS: SENNOSIDES 1 TABLET PO SCH (20:00)
[2019-09-16 20:05] VITALS: BP 144/60
[2019-09-17] MEDS: TOBRAMYCIN/DEXAMETH OPHT DROP 2.5 ML BOTTLE RIGHTEYE SCH ×5 (06:00→23:54)
[2019-09-17 07:30] VITALS: BP 118/55
[2019-09-17] MEDS: FERROUS SULFATE 325 MG TABEC PO SCH ×2 (08:06→20:07)
[2019-09-17] MEDS: OMEGA-3 FATTY ACIDS/FISH OIL CAPSULE PO SCH (08:06)
[2019-09-17] MEDS: risperiDONE-M 0.5 MG TAB.RAPDIS PO SCH ×3 (08:06→20:07)
[2019-09-17 10:29] LABS: *BILIRUBIN,URIN NEGATIVE (NEGATIVE); *BLOOD, URINE NEGATIVE (NEGATIVE); *CLARITY,URINE SLIGHTLY CLOUDY (CLEAR); *COLOR,URINE YELLOW (YELLOW); *KETONES,URINE NEGATIVE (NEGATIVE); *UROBILINOGEN,URINE 0.2 E.U./dl (NORMAL); LEUKOCYTE ESTERASE ,URINE NEGATIVE (NEGATIVE); NITRITE, URINE NEGATIVE (NEGATIVE); PH,URINE 5.5 (5.0-8.0); UGLUCOSE NEGATIVE (NEGATIVE)
[2019-09-17 11:11] LABS: BACTERIA,URINE NONE SEEN /HPF (NONE SEEN); MUCUS,URINE FEW /LPF (0-FEW); RBC,URINE NONE SEEN /HPF (0-3); SQUAMOUS EPITHELIAL CELL,UR FEW /HPF (NONE SEEN); URIC ACID CRYSTALS,URINE FEW /HPF (NONE SEEN); WBC,URINE 0-3 /HPF (0-3)
[2019-09-17 15:26] VITALS: BP 119/42
[2019-09-17 20:00] VITALS: BP 137/47
[2019-09-17] MEDS: SENNOSIDES 1 TABLET PO SCH (20:07)
[2019-09-17] MEDS: VALPROIC ACID 250 MG/5 ML LIQUID UDC PO SCH (20:07)
[2019-09-18] MEDS: TOBRAMYCIN/DEXAMETH OPHT DROP 2.5 ML BOTTLE RIGHTEYE SCH ×3 (06:00→17:10)
[2019-09-18 07:30] VITALS: BP 116/47
[2019-09-18] MEDS: risperiDONE-M 0.5 MG TAB.RAPDIS PO SCH ×3 (08:02→20:21)
[2019-09-18] MEDS: OMEGA-3 FATTY ACIDS/FISH OIL CAPSULE PO SCH (08:02)
[2019-09-18] MEDS: FERROUS SULFATE 325 MG TABEC PO SCH ×2 (08:03→20:20)
[2019-09-18 15:08] VITALS: BP 107/50
[2019-09-18 20:17] VITALS: BP 126/39
[2019-09-18] MEDS: VALPROIC ACID 250 MG/5 ML LIQUID UDC PO SCH (20:21)
[2019-09-18] MEDS: SENNOSIDES 1 TABLET PO SCH (20:21)
[2019-09-19] MEDS: TOBRAMYCIN/DEXAMETH OPHT DROP 2.5 ML BOTTLE RIGHTEYE SCH ×3 (06:00→12:00)
[2019-09-19 07:42] VITALS: BP 130/61
[2019-09-19] MEDS: FERROUS SULFATE 325 MG TABEC PO SCH (08:01)
[2019-09-19] MEDS: OMEGA-3 FATTY ACIDS/FISH OIL CAPSULE PO SCH (08:01)
[2019-09-19] MEDS: risperiDONE-M 0.5 MG TAB.RAPDIS PO SCH (08:01)
== END 2019-09-19 13:15 | DRG 885 ==
LOC: ER 10:49 → GPS 11:58
PROVIDERS: ADMIT Psychiatry & Neurology Psychosomatic Medicine; ATTEND Hospitalist
DX: F25.0 Schizoaffective disorder, bipolar type (principal); F01.51 Vascular dementia, unspecified severity, with behavioral disturbance; N17.0 Acute kidney failure with tubular necrosis; N18.9 Chronic kidney disease, unspecified; F03.91 Unspecified dementia, unspecified severity, with behavioral disturbance; N39.0 Urinary tract infection, site not specified; G93.40 Encephalopathy, unspecified; Z85.819 Personal history of malignant neoplasm of unspecified site of lip, oral cavity, and pharynx; N40.1 Benign prostatic hyperplasia with lower urinary tract symptoms; Z91.19 Patient's noncompliance with other medical treatment and regimen; K80.20 Calculus of gallbladder without cholecystitis without obstruction; D63.1 Anemia in chronic kidney disease; D50.0 Iron deficiency anemia secondary to blood loss (chronic); G31.9 Degenerative disease of nervous system, unspecified; Z87.891 Personal history of nicotine dependence; Z91.14 Patient's other noncompliance with medication regimen; Z85.038 Personal history of other malignant neoplasm of large intestine; Z79.899 Other long term (current) drug therapy; K42.9 Umbilical hernia without obstruction or gangrene; F41.9 Anxiety disorder, unspecified; K76.9 Liver disease, unspecified
CPT/HCPCS: 36415; 70030-TC; 71045; 80307; 85025; 87086; 93005; A4663; G0480; G0480-TC

== ENCOUNTER 2020-08-28 14:23 | Inpatient (IN) | payer MEDICARE, OTHER ==
[~2020-08-28] VITALS: Ht 167.6 cm; Wt 66.7 kg
--- NOTE | 2020-08-28 14:37 | NUR ---
PT IS IN ROOM #2B. DR VARGAS EVALUATED THE PT.
[2020-08-28 14:53] LABS: *BILIRUBIN,URIN NEGATIVE (NEGATIVE); *BLOOD, URINE NEGATIVE (NEGATIVE); *CLARITY,URINE CLEAR (CLEAR); *COLOR,URINE YELLOW (YELLOW); *KETONES,URINE NEGATIVE (NEGATIVE); *UROBILINOGEN,URINE 0.2 E.U./dl (NORMAL); LEUKOCYTE ESTERASE ,URINE TRACE (NEGATIVE); NITRITE, URINE NEGATIVE (NEGATIVE); PH,URINE 5.5 (5.0-8.0); UGLUCOSE NEGATIVE (NEGATIVE)
[2020-08-28 15:00] LABS: RBC,URINE 0-3 /HPF (0-3)
[2020-08-28 15:01] LABS: BACTERIA,URINE NONE SEEN /HPF (NONE SEEN); SQUAMOUS EPITHELIAL CELL,UR NONE SEEN /HPF (NONE SEEN)
[2020-08-28 15:06] LABS: BASOPHILS % (AUTO) 0.6 % (0.0-2.0); EOSINOPHILS # (AUTO) 0.1 K/uL (0.0-0.7); EOSINOPHILS % (AUTO) 1.7 % (0.0-7.0); HEMATOCRIT 29.3 % (36.7-47.1); HEMOGLOBIN 9.4 g/dL (12.5-16.3); LYMPHOCYTES # (AUTO) 1.2 K/uL (20.0-40.0); MEAN CORPUSCULAR HEMOGLOBIN 24.2 uug (23.8-33.4); MEAN CORPUSCULAR HGB CONC 32 g/dL (32.5-36.3); MEAN CORPUSCULAR VOLUME 75.7 fL (73.0-96.2); MONOCYTES # (AUTO) 0.7 K/uL (2.0-10.0); MONOCYTES % (AUTO) 9.5 % (0.0-11.0); NEUTROPHILS # (AUTO) 5.6 K/uL (1.8-8.9); NEUTROPHILS % (AUTO) 73.2 % (38.5-71.5); PLATELET COUNT (AUTO) 291 K/uL (152-348); RED BLOOD CELL COUNT(AUTO) 3.87 MIL/uL (4.06-5.63); WHITE BLOOD COUNT (AUTO) 7.7 K/uL (3.6-10.2)
[2020-08-28] MEDS ORDERED: DOCU-141 PO (15:07)
[2020-08-28] MEDS ORDERED: DIVA250T4 PO (15:07)
[2020-08-28] MEDS ORDERED: SENN-175 PO (15:07)
[2020-08-28] MEDS ORDERED: FERR325T30 PO (15:07)
[2020-08-28] MEDS ORDERED: RISP0.5T5 PO (15:07)
[2020-08-28] MEDS ORDERED: ACET-2154 PO (15:07)
[2020-08-28] MEDS ORDERED: RISP0.5T20 PO (15:07)
[2020-08-28 15:14] LABS: CARBON DIOXIDE 29 mmol/L (21-32); CHLORIDE 106 mmol/L (98-107); CREATININE 1.4 mg/dL (0.6-1.3); GLUCOSE 138 mg/dL (74-106); POTASSIUM 3.9 mmol/L (3.5-5.1); UREA NITROGEN, BLOOD 27 mg/dL (7-18)
[2020-08-28 15:18] LABS: *AMPHETAMINE, URINE NEGATIVE (NEGATIVE); *CANNABINOID, URINE NEGATIVE (NEGATIVE); *COCCAINE, URINE NEGATIVE (NEGATIVE); *OPIATE, URINE NEGATIVE (NEGATIVE); *PHENCYCLIDINE SCREEN,URINE NEGATIVE (NEGATIVE)
[2020-08-28 15:19] LABS: ALANINE AMINOTRANSFERASE 15 U/L (16-63); ALKALINE PHOSPHATASE 93 U/L (50-136); ASPARTATE AMINOTRANSFERASE 15 U/L (15-37); BILIRUBIN,DIRECT 0.1 mg/dL (0.0-0.2); BILIRUBIN,TOTAL 0.3 mg/dL (0.2-1.0)
[2020-08-28 15:20] LABS: ACETAMINOPHEN < 2.0 ug/mL (10-30)
[2020-08-28 15:21] LABS: ETHANOL < 3 MG/DL (0-0)
--- NOTE | 2020-08-28 15:32 | NUR ---
CALLED MALATHI BRUNSONW AND LEFT MESSAGE
--- NOTE | 2020-08-28 16:50 | NUR ---
CRISIS FEED HOUSE SUPERVISOR CECILIO EVALUATED THE PT. PT WAS PLACED ON HOLD DANGER TO OTHERS AND GRAVELY DISABLED. PT IS RESTING IN THE BED CONFORTABLY , NO S/S OF ACUTE DISTRESS AT THIS TIME. CONTINUE TO MONITOR THE PT.
--- NOTE | 2020-08-28 17:44 | NUR ---
REPORT WAS GIVEN TO NOE HAHN FROM [facility]. PT WAS TRANSFERED TO ROOM #137A.
--- NOTE | 2020-08-28 18:00 | NUR ---
Gps/Steam Shovel Engineer -Received from ER via wheel chair in no signs of any distress, ER.gave report to Macrina Daniels( Charge Nurse). Patient had been noted to be pleasant, smiles on occ.. Speaks American & very simple Brazilian Patient alert, oriented to self, per notes patient had episodes of > agitation at [facility] , was physically/verbally aggressive at the staff .Per advisement patient admitted under 5150 Gravely disabled , Danger to others,. safety reviewed emphasized. Patient remains in his room quiet at this time..Continue to monitor behavior.
[2020-08-28] MEDS ORDERED: ACETAMINOPHEN 325 MG TABLET PO PRN (18:15)
[2020-08-28 18:34] VITALS: BP 140/44
[2020-08-28 20:00] VITALS: BP 150/42
[2020-08-28] MEDS: FERROUS SULFATE 325 MG TABEC PO SCH (21:00)
[2020-08-28] MEDS: SENNOSIDES 1 TABLET PO SCH (21:00)
[2020-08-28] MEDS ORDERED: LORAZEPAM 0.5 MG TABLET PO PRN (22:30)
[2020-08-28] MEDS ORDERED: MAGNESIUM HYDROXIDE 30 ML LIQUID UDC PO PRN (22:30)
[2020-08-28] MEDS ORDERED: BLOOD SUGAR DIAGNOSTIC 1 EACH STRIP VI ONE (22:30)
[2020-08-28] MEDS ORDERED: MAG HYDROX/AL HYDROX/SIMETH 30 ML LIQUID UDC PO PRN (22:30)
[2020-08-28] MEDS: TEMAZEPAM 7.5 MG CAPSULE PO PRN (23:01)
--- NOTE | 2020-08-29 06:07 | NUR ---
GPS/NSG Admission Note: 89 yr old male admitted to MHU under the care of Dr. Mckeon and Dr Bailey with a dx of Psychosis. Patient has a history of Schizophrenia, Bipolar D/O. Patient arrived via gurney from ER brought in by staff, admitted on a 5150 for Danger to others and Gravely Disabled from [facility] after Pt was found to be easily agitated, verbally and physically attempting to assault staff and peers. Pt. suffered great decline as well as no PO intake. Upon admission to the unit, VS stable, denies pain, and is in no apparent physical distress however -refused all admitting procedures. Upon evaluation, Pt is unkempt and disheveled, he is AOx2 patient was reluctant to sign all paperwork. Affect is flat, mood is depressed/low. Skin assessment completed Patient Rights handbook and Advisement and Pt rights handbook given, unit rules explained, Pt verbalized understanding. Pt oriented to the unit, the phone, the restrooms, and his room. Q 15 minute rounding initiated for safety.
[2020-08-29 07:30] VITALS: BP 126/46
[2020-08-29] MEDS: DOCUSATE SODIUM 100 MG CAPSULE PO SCH (08:11)
[2020-08-29] MEDS: FERROUS SULFATE 325 MG TABEC PO SCH ×2 (08:11→21:00)
[2020-08-29] MEDS ORDERED: DIVALPROEX 250 MG TABLET.DR PO SCH (09:00)
--- NOTE | 2020-08-29 09:09 | NUR ---
Gps/Chain Maker- Encouraged to eat breakfast, was able to eat bites of eggs,, fluids offered, hesitancy to take routine am meds, suspicious, needed prompting. Patient pacing back and forth the hallway, speaks Slovenian, flat affect, goes back and forth to his room.
--- NOTE | 2020-08-29 10:37 | NUR ---
BERONICA Initial Discharge Plan: Patient currently resides at [address] [address] ([phone]). BERONICA spoke with Briana office coordinator receptionist at the facility who confirmed the patient will return back to the facility upon discharge. Patient's daughter, Tessa Iqbal ([phone]) is involved in the patient's treatment and discharge plan. BERONICA will continue to work with patient, family, and MD to ensure a safe and proper discharge plan.
--- NOTE | 2020-08-29 10:37 | NUR ---
BERONICA Family Contact: SW spoke with patient's daughter, Tessa Iqbal ([phone]) who is involved in the patient's care and discussed treatment and discharge plan.
--- NOTE | 2020-08-29 10:39 | NUR ---
Firearms Report: Disbursement Clerk completed and submitted a [employer] firearms report for 5150 danger to others and grave disability certification. A copy of report has been placed in patient chart.
[2020-08-29] MEDS: DIVALPROEX SPRINKLE 125 MG CAP.SPRINK PO SCH ×2 (13:04→16:33)
[2020-08-29] MEDS: risperiDONE-M 0.5 MG TAB.RAPDIS PO SCH ×3 (13:04→21:00)
--- NOTE | 2020-08-29 13:09 | NUR ---
Gps/Dust Collector Treater- Had been quiet , in and out of his room, ,hesitant to take his pm meds, encouraged, prompted. able to take after convincing him , able to drink his ensure supplement.
[2020-08-29 16:00] VITALS: BP 116/48
--- NOTE | 2020-08-29 16:54 | NUR ---
Gps/Cheese Grader- called [facility] f/u regarding patient DNR status, spoked to Fanta Schrader Respiratory Assistant confirmed DNR status, requested copy of POLST , will fax paper per Fanta Schrader.
--- NOTE | 2020-08-29 16:57 | NUR ---
Gps/Ophthalmic Technician- Per record from [facility], patient received Flu vaccine on 07/04/20, will call SNF again to confirmed
[2020-08-29 20:00] VITALS: BP 116/40
[2020-08-29] MEDS: SENNOSIDES 1 TABLET PO SCH (21:00)
--- NOTE | 2020-08-29 21:15 | NUR ---
GPS/Rn - Received pt pacing in hallway. Pt is noted forgetful and pacing in unit, pt noted lost most times trying to get into other patients rooms or bathroom. Redirected and reality oriented but pt is confuse and language barrier made it difficult. Pt uncooperative at this time with medications. Picked up the med cup and swing it at this proposal lead writer, but than took pudding that was served to him. Pt was expressing something but in his dialect and unable to understand and assist him. To reduce agitation pt was left alone. Will offer medication again. At this time pt is in his room siting down in bed.
--- NOTE | 2020-08-29 22:08 | NUR ---
Re-offered medication to patient and he took only one tablet of Senokot and refused the rest. Pt said in Kuwaiti "I do not speak Kuwaiti" and waved me away refusing other meds as this telegraphic typewriter operator chief insisted for him to take it.
[2020-08-30] MEDS: TEMAZEPAM 7.5 MG CAPSULE PO PRN (01:15)
--- NOTE | 2020-08-30 05:53 | NUR ---
Pt was constantly pacing and walks into other patients rooms, very forgetful and confuse. By 0115 convenience pt to take sleeping pill and he agreed. Monitor and pt sleep a bit but woke up pacing again. Later pt was able to sleep a little more. Continue monitoring and safety precaution ongoing.
[2020-08-30 07:30] VITALS: BP 107/48
[2020-08-30] MEDS: FERROUS SULFATE 325 MG TABEC PO SCH ×2 (09:00→20:23)
[2020-08-30] MEDS: DOCUSATE SODIUM 100 MG CAPSULE PO SCH (09:00)
[2020-08-30] MEDS: risperiDONE-M 0.5 MG TAB.RAPDIS PO SCH ×4 (09:57→20:22)
[2020-08-30] MEDS: DIVALPROEX SPRINKLE 125 MG CAP.SPRINK PO SCH ×3 (09:57→17:24)
--- NOTE | 2020-08-30 14:43 | NUR ---
GPS: Nursing Notes: Destructive Behavior to Others: Patient is awake and responding to her name, resistant with nursing care, calling staff "idiots", loud and pressured speech, gets easily irritable when redirected, forgetful, hiding his dentures under his pillow, under his mattress and then asking the staff for his dentures when he forgot where he put them, believing that someone stole it from him, redirected and reoriented during shift, unable to formulate a viable plan for self care, continue with treatment plan.
[2020-08-30 16:32] VITALS: BP 103/50
[2020-08-30 20:00] VITALS: BP 118/42
[2020-08-30] MEDS: SENNOSIDES 1 TABLET PO SCH (20:22)
[2020-08-30 20:43] LABS: *BILIRUBIN,URIN NEGATIVE (NEGATIVE); *BLOOD, URINE NEGATIVE (NEGATIVE); *CLARITY,URINE CLEAR (CLEAR); *COLOR,URINE YELLOW (YELLOW); *KETONES,URINE NEGATIVE (NEGATIVE); *UROBILINOGEN,URINE 0.2 E.U./dl (NORMAL); LEUKOCYTE ESTERASE ,URINE TRACE (NEGATIVE); NITRITE, URINE NEGATIVE (NEGATIVE); UGLUCOSE NEGATIVE (NEGATIVE)
[2020-08-30 20:47] LABS: *URINE TOTAL PROTEIN RANDOM 22.5 mg/dL (<150/24HR)
--- NOTE | 2020-08-30 21:29 | NUR ---
Received patient in the day room very irritated and grumpy. Patient refused to take any of his PM medications despite encouragement. Patient shoed nurse away with his hands stating a loud "NO". Continue to monitor for safety and increase in irritability. Will endorse the noncompliance issue. No acute distress at this time, but paranoid behavior noted.
[2020-08-30 23:22] LABS: BACTERIA,URINE NONE SEEN /HPF (NONE SEEN); RBC,URINE 0-3 /HPF (0-3); SQUAMOUS EPITHELIAL CELL,UR FEW /HPF (NONE SEEN)
--- NOTE | 2020-08-31 05:28 | NUR ---
Patient spent most of the night pacing the hallway. Water offered but patient declined. Patients roommate was moved because he felt threatened by this patient and unsafe. Will try to encourage medication compliance when possible by using blue phone, family or nurses that speak the patients language. Patient is refusing to shower as well. Patient asleep at this time.
[2020-08-31 07:45] VITALS: BP 103/48
[2020-08-31] MEDS: DOCUSATE SODIUM 100 MG CAPSULE PO SCH (09:14)
[2020-08-31] MEDS: risperiDONE-M 0.5 MG TAB.RAPDIS PO SCH ×4 (10:26→20:52)
[2020-08-31] MEDS: DIVALPROEX SPRINKLE 125 MG CAP.SPRINK PO SCH ×3 (10:26→16:25)
[2020-08-31] MEDS: FERROUS SULFATE 325 MG TABEC PO SCH ×2 (10:26→20:52)
[2020-08-31 16:45] VITALS: BP 109/48
[2020-08-31] MEDS: SENNOSIDES 1 TABLET PO SCH (20:52)
[2020-08-31 20:54] VITALS: BP 115/49
--- NOTE | 2020-08-31 22:36 | NUR ---
Received patient ambulating in the hallway, then went back to the room. Again , patient refused to take his PM medications. No aggression noted at others tonight. Continuing to monitor for safety and encourage medication compliance.
[2020-09-01 07:30] VITALS: BP 122/50
[2020-09-01] MEDS: DOCUSATE SODIUM 100 MG CAPSULE PO SCH (08:30)
[2020-09-01] MEDS: FERROUS SULFATE 325 MG TABEC PO SCH ×2 (08:30→20:24)
[2020-09-01] MEDS: risperiDONE-M 0.5 MG TAB.RAPDIS PO SCH ×3 (08:30→16:36)
[2020-09-01] MEDS: DIVALPROEX SPRINKLE 125 MG CAP.SPRINK PO SCH ×3 (08:30→16:37)
--- NOTE | 2020-09-01 13:08 | NUR ---
GPS: Nursing Notes: Thought Disorder: Patient is awake and responding to his name, impaired judgment, resistant with nursing care, Depakote increased to 250mg, but patient taking only 125mg and refusing 125mg, gets easily irritable when redirected, loud and pressured speech, forgetful, redirected and reoriented during shift, unable to formulate a viable plan for self care, continue with treatment plan.
[2020-09-01 15:03] VITALS: BP 111/46
[2020-09-01] MEDS: SENNOSIDES 1 TABLET PO SCH (20:24)
[2020-09-01 20:40] VITALS: BP 138/42
--- NOTE | 2020-09-02 01:27 | NUR ---
RECEIVED PATIENT IN BED.RESPONDS TO NAME BUT IS EASILY IRRITABLE MAYBE DUE TO LANGUAGE BARRIER. WAS HESITANT TO TAKE MEDS BUT AFTER SOME PROMPTING AND ENCOURAGEMENT HE TOOK THEM.VISUAL CHECKS MADE ON HIM FOR SAFETY.WILL CONTINUE TO MONITOR.
--- NOTE | 2020-09-02 06:39 | NUR ---
SLEPT WELL FOR 7:45HOURS. UP AND PACING THE HALLWAY.
[2020-09-02 07:30] VITALS: BP 99/48
[2020-09-02] MEDS: DOCUSATE SODIUM 100 MG CAPSULE PO SCH (08:33)
[2020-09-02] MEDS: risperiDONE-M 0.5 MG TAB.RAPDIS PO SCH ×2 (08:33→17:24)
[2020-09-02] MEDS: DIVALPROEX SPRINKLE 125 MG CAP.SPRINK PO SCH (08:33)
[2020-09-02] MEDS: FERROUS SULFATE 325 MG TABEC PO SCH ×2 (08:34→20:47)
--- NOTE | 2020-09-02 10:25 | NUR ---
GPS: Nursing Notes: Destructive Behavior to Others: Patient is awake and responding to his name, poor anger management, resistant with nursing care, loud and pressured speech, calling staff "Idiots..", patient refusing half of his Depakote, taking only 125mg instead of 250mg, shouting at technical support agent, stated "I don't care what the doctor ordered.. I am going to take only one capsule..", labile, unpredictable behavior, Dr. Mckeon informed that patient is not fully compliant wtih his Depakote - only taking half the dosage, gets easily irritable when redirected, unable to formula a viable plan for self care, continue with treatment plan.
[2020-09-02 15:10] VITALS: BP 114/44
[2020-09-02] MEDS: DIVALPROEX 250 MG TABLET.DR PO SCH (17:24)
[2020-09-02] MEDS: GLUCERNA SHAKE VANILLA 237 ML CAN PO SCH (17:25)
[2020-09-02] MEDS: SENNOSIDES 1 TABLET PO SCH (20:47)
--- NOTE | 2020-09-02 22:18 | NUR ---
PATIENT IS NOTED FORGETFUL AND PACING THE UNIT. NO AGGRESSIVE BEHAVIOR NOTED, NO COMBATIVE BEHAVIOR NOTED. PATIENT CONFUSED AND LANGUAGE BARRIER NOTED. PATIENT IS LABILE, EASILY IRRITABLE WILL CONTINUE TO MONITOR.
[2020-09-03 07:30] VITALS: BP 108/43
[2020-09-03] MEDS ORDERED: risperiDONE-M 0.5 MG TAB.RAPDIS PO SCH ×3 (08:00→21:00)
[2020-09-03] MEDS: FERROUS SULFATE 325 MG TABEC PO SCH ×2 (09:37→21:00)
[2020-09-03] MEDS: DIVALPROEX 250 MG TABLET.DR PO SCH ×2 (09:37→18:10)
[2020-09-03] MEDS: GLUCERNA SHAKE VANILLA 237 ML CAN PO SCH ×2 (09:37→18:10)
[2020-09-03] MEDS: DOCUSATE SODIUM 100 MG CAPSULE PO SCH (09:38)
--- NOTE | 2020-09-03 13:42 | NUR ---
PC Hearing: Probable cause for gravely disabled.
[2020-09-03 16:00] VITALS: BP 130/46
[2020-09-03] MEDS: risperiDONE-M 0.5 MG TAB.RAPDIS PO SCH (18:10)
[2020-09-03 20:00] VITALS: BP 124/42
[2020-09-03] MEDS: SENNOSIDES 1 TABLET PO SCH (21:00)
[2020-09-03] MEDS: TEMAZEPAM 7.5 MG CAPSULE PO PRN (22:18)
--- NOTE | 2020-09-03 23:18 | NUR ---
PATIENT IS NOTED FORGETFUL AND PACING THE UNIT. NO AGGRESSIVE BEHAVIOR NOTED, NO COMBATIVE BEHAVIOR NOTED. PATIENT CONFUSED AND LANGUAGE BARRIER NOTED.
[2020-09-04 07:30] VITALS: BP 128/48
[2020-09-04] MEDS ORDERED: risperiDONE-M 0.5 MG TAB.RAPDIS PO SCH (08:00)
[2020-09-04] MEDS: DIVALPROEX 250 MG TABLET.DR PO SCH ×2 (08:17→18:03)
[2020-09-04] MEDS: FERROUS SULFATE 325 MG TABEC PO SCH ×2 (08:17→20:27)
[2020-09-04] MEDS: DOCUSATE SODIUM 100 MG CAPSULE PO SCH (08:17)
[2020-09-04] MEDS: risperiDONE-M 0.5 MG TAB.RAPDIS PO SCH ×2 (08:17→18:03)
[2020-09-04] MEDS: GLUCERNA SHAKE VANILLA 237 ML CAN PO SCH ×2 (08:33→17:00)
[2020-09-04 16:00] VITALS: BP 144/52
[2020-09-04 20:00] VITALS: BP 102/40
[2020-09-04] MEDS: SENNOSIDES 1 TABLET PO SCH (20:27)
--- NOTE | 2020-09-05 05:57 | NUR ---
GPS: Patient remain calm and cooperative.occ pacing in the hallway.no agitation noted.resting in bed comfortably. slept 7.15 hrs through the night. continue plan of care.
[2020-09-05 07:30] VITALS: BP 120/50
[2020-09-05] MEDS: GLUCERNA SHAKE VANILLA 237 ML CAN PO SCH ×2 (08:06→17:00)
[2020-09-05] MEDS: DOCUSATE SODIUM 100 MG CAPSULE PO SCH (08:16)
[2020-09-05] MEDS: risperiDONE-M 0.5 MG TAB.RAPDIS PO SCH (08:16)
[2020-09-05] MEDS: DIVALPROEX 250 MG TABLET.DR PO SCH ×2 (08:16→18:04)
[2020-09-05] MEDS: FERROUS SULFATE 325 MG TABEC PO SCH ×3 (08:20→21:39)
--- NOTE | 2020-09-05 08:57 | NUR ---
Received patient awake, alert and oriented pacing in the hallway. patient has an angry affect and has minimal interaction with staff. patient is only speaking Yemeni, therefore difficult to communicate. when this writer technical publications attempts to speak Hebrew with patient he responds in Yemeni. Patient is adherent with medication, except for PO Feosol. educated about importance of taking medication as prescribed but refused. patient is able to tolerate food and fluid. able to ambulate independently.
[2020-09-05 15:02] VITALS: BP 139/52
[2020-09-05] MEDS: risperiDONE 1 MG TABLET PO SCH (18:04)
[2020-09-05 19:53] VITALS: BP 106/40
[2020-09-05] MEDS: SENNOSIDES 1 TABLET PO SCH ×2 (20:59→21:38)
--- NOTE | 2020-09-06 05:55 | NUR ---
Gps - Patient a/ox2, verbally able to make needs known but language barrier with difficulty relating with staffs. Pt is calm with no aggression noted. Pt refused routine medications and pointed to stool softer and iron that not good gesture, tried to make aware of important to take meds as order. Pt during night noted pacing in hallway due to unable to sleep but when offered sleeping aid pt said no several times. Pt slept intermittently with no new changes. Will continue monitor and at this time pt in bed resting. Safety precaution ongoing with Q/15 minutes head count done.
[2020-09-06 07:30] VITALS: BP 118/56
[2020-09-06] MEDS: DOCUSATE SODIUM 100 MG CAPSULE PO SCH (08:47)
[2020-09-06] MEDS: risperiDONE-M 0.5 MG TAB.RAPDIS PO SCH (08:47)
[2020-09-06] MEDS: DIVALPROEX 250 MG TABLET.DR PO SCH ×2 (08:47→17:13)
[2020-09-06] MEDS: GLUCERNA SHAKE VANILLA 237 ML CAN PO SCH ×2 (08:51→17:16)
[2020-09-06 15:32] VITALS: BP 112/50
[2020-09-06] MEDS: risperiDONE 1 MG TABLET PO SCH (17:13)
[2020-09-06 20:00] VITALS: BP 134/41
[2020-09-06] MEDS: SENNOSIDES 1 TABLET PO SCH (20:06)
[2020-09-06] MEDS: FERROUS SULFATE 325 MG TABEC PO SCH (20:09)
[2020-09-07 07:30] VITALS: BP 132/74
[2020-09-07] MEDS: risperiDONE-M 0.5 MG TAB.RAPDIS PO SCH (08:51)
[2020-09-07] MEDS: GLUCERNA SHAKE VANILLA 237 ML CAN PO SCH ×2 (08:51→17:37)
[2020-09-07] MEDS: DOCUSATE SODIUM 100 MG CAPSULE PO SCH (08:51)
[2020-09-07] MEDS: DIVALPROEX 250 MG TABLET.DR PO SCH ×2 (08:51→17:37)
[2020-09-07] MEDS: FERROUS SULFATE 325 MG TABEC PO SCH ×2 (08:51→21:00)
[2020-09-07 16:00] VITALS: BP 142/49
[2020-09-07] MEDS: risperiDONE 1 MG TABLET PO SCH (17:37)
[2020-09-07 20:00] VITALS: BP 132/41
[2020-09-07] MEDS: SENNOSIDES 1 TABLET PO SCH (21:00)
--- NOTE | 2020-09-08 06:31 | NUR ---
GPS - Pt was calm but periodically pacing and awake from sleep pacing. Pt none compliant with routine medication none psych meds tonight. Pt difficult to redirect due to language barrier. Overall no major behavior and no outburst noted. Pt had refused PRN when offered. Continue monitor with no new changes.
[2020-09-08 07:30] VITALS: BP 120/48
[2020-09-08] MEDS: risperiDONE-M 0.5 MG TAB.RAPDIS PO SCH ×2 (08:00→09:45)
[2020-09-08] MEDS: GLUCERNA SHAKE VANILLA 237 ML CAN PO SCH ×2 (08:44→17:41)
[2020-09-08] MEDS: FERROUS SULFATE 325 MG TABEC PO SCH ×3 (09:00→20:12)
[2020-09-08] MEDS: DOCUSATE SODIUM 100 MG CAPSULE PO SCH ×2 (09:00→09:45)
[2020-09-08] MEDS: DIVALPROEX 250 MG TABLET.DR PO SCH ×2 (09:45→17:41)
[2020-09-08 15:05] VITALS: BP 134/50
[2020-09-08] MEDS: risperiDONE 1 MG TABLET PO SCH (17:41)
[2020-09-08] MEDS: SENNOSIDES 1 TABLET PO SCH (20:12)
[2020-09-08 21:02] VITALS: BP 116/71
[2020-09-09 07:30] VITALS: BP 127/46
[2020-09-09] MEDS: risperiDONE-M 0.5 MG TAB.RAPDIS PO SCH (08:27)
[2020-09-09] MEDS: DOCUSATE SODIUM 100 MG CAPSULE PO SCH (08:27)
[2020-09-09] MEDS: DIVALPROEX 250 MG TABLET.DR PO SCH (08:28)
[2020-09-09] MEDS: FERROUS SULFATE 325 MG TABEC PO SCH ×2 (08:28→20:21)
[2020-09-09] MEDS: GLUCERNA SHAKE VANILLA 237 ML CAN PO SCH ×2 (08:29→16:59)
[2020-09-09 09:36] LABS: BASOPHILS # (AUTO) 0.1 K/uL (0.0-8.0); BASOPHILS % (AUTO) 0.5 % (0.0-2.0); EOSINOPHILS # (AUTO) 0.2 K/uL (0.0-0.7); EOSINOPHILS % (AUTO) 1.9 % (0.0-7.0); HEMATOCRIT 32.8 % (36.7-47.1); HEMOGLOBIN 10.3 g/dL (12.5-16.3); LYMPHOCYTES # (AUTO) 1.3 K/uL (20.0-40.0); LYMPHOCYTES % (AUTO) 12.5 % (20.5-51.5); MEAN CORPUSCULAR HEMOGLOBIN 24.1 uug (23.8-33.4); MEAN CORPUSCULAR HGB CONC 32 g/dL (32.5-36.3); MEAN CORPUSCULAR VOLUME 76.6 fL (73.0-96.2); MONOCYTES # (AUTO) 0.9 K/uL (2.0-10.0); MONOCYTES % (AUTO) 8.6 % (0.0-11.0); NEUTROPHILS # (AUTO) 7.7 K/uL (1.8-8.9); NEUTROPHILS % (AUTO) 76.5 % (38.5-71.5); PLATELET COUNT (AUTO) 347 K/uL (152-348); RED BLOOD CELL COUNT(AUTO) 4.28 MIL/uL (4.06-5.63)
[2020-09-09 09:43] LABS: ALANINE AMINOTRANSFERASE 16 U/L (16-63); ALKALINE PHOSPHATASE 111 U/L (50-136); ASPARTATE AMINOTRANSFERASE 15 U/L (15-37); BILIRUBIN,TOTAL 0.3 mg/dL (0.2-1.0); CARBON DIOXIDE 30 mmol/L (21-32); CHLORIDE 105 mmol/L (98-107); CREATININE 1.6 mg/dL (0.6-1.3); GLUCOSE 94 mg/dL (74-106); POTASSIUM 4.4 mmol/L (3.5-5.1); UREA NITROGEN, BLOOD 37 mg/dL (7-18); VALPROIC ACID < 3 ug/mL (50-100)
--- NOTE | 2020-09-09 11:27 | NUR ---
SPOKE WITH WITH ORDER MADE TO CHANGE DEPAKOTE TO SPRINKLE , ORDERS MADE AND CARRIED OUT, PATIENT AWARE
[2020-09-09 16:00] VITALS: BP 134/48
--- NOTE | 2020-09-09 16:12 | NUR ---
Dr. Mckeon called and requested UA and urine c/s, urine sent to lab.
[2020-09-09 16:15] LABS: *BILIRUBIN,URIN NEGATIVE (NEGATIVE); *BLOOD, URINE NEGATIVE (NEGATIVE); *CLARITY,URINE CLEAR (CLEAR); *COLOR,URINE YELLOW (YELLOW); *KETONES,URINE NEGATIVE (NEGATIVE); *UROBILINOGEN,URINE 0.2 E.U./dl (NORMAL); LEUKOCYTE ESTERASE ,URINE TRACE (NEGATIVE); NITRITE, URINE NEGATIVE (NEGATIVE); UGLUCOSE NEGATIVE (NEGATIVE)
[2020-09-09] MEDS: DIVALPROEX SPRINKLE 125 MG CAP.SPRINK PO SCH (16:43)
[2020-09-09] MEDS: risperiDONE 1 MG TABLET PO SCH (16:43)
[2020-09-09 18:20] LABS: BACTERIA,URINE FEW /HPF (NONE SEEN); RBC,URINE 0-3 /HPF (0-3); SQUAMOUS EPITHELIAL CELL,UR FEW /HPF (NONE SEEN)
[2020-09-09 18:21] LABS: MUCUS,URINE FEW /LPF (0-FEW)
--- NOTE | 2020-09-09 18:25 | NUR ---
noted patient UA result will notified Cassie X RAY CONSULTANT by charge nurse.
[2020-09-09] MEDS: CEphaleXIN 500 MG CAPSULE PO SCH (19:35)
[2020-09-09 20:04] VITALS: BP 113/45
[2020-09-09] MEDS: SENNOSIDES 1 TABLET PO SCH (20:21)
[2020-09-10] MEDS: TEMAZEPAM 7.5 MG CAPSULE PO PRN (00:45)
--- NOTE | 2020-09-10 00:47 | NUR ---
GPS: Pt.is awake at this time. Pacing up and down the hallway. Calm but easily irritable when being re-directed and when sleeping pill was offered. Will continue to monitor.
[2020-09-10 07:30] VITALS: BP 129/39
[2020-09-10] MEDS: risperiDONE-M 0.5 MG TAB.RAPDIS PO SCH (08:00)
[2020-09-10] MEDS: DOCUSATE SODIUM 100 MG CAPSULE PO SCH (08:15)
[2020-09-10] MEDS: DIVALPROEX SPRINKLE 125 MG CAP.SPRINK PO SCH ×2 (08:15→17:24)
[2020-09-10] MEDS: GLUCERNA SHAKE VANILLA 237 ML CAN PO SCH ×2 (08:15→17:25)
[2020-09-10] MEDS: CEphaleXIN 500 MG CAPSULE PO SCH ×2 (08:15→17:24)
[2020-09-10] MEDS: FERROUS SULFATE 325 MG TABEC PO SCH ×2 (08:21→20:04)
--- NOTE | 2020-09-10 14:00 | NUR ---
GROUP NOTE: SW encouraged pt to attend group therapy. Pt was in bed and refused to attend. Pt appears confused, disorganized, and disoriented. Pt was laying in bed and did not engage in conversation with SW.
[2020-09-10 16:00] VITALS: BP 106/35
[2020-09-10] MEDS: risperiDONE 1 MG TABLET PO SCH ×2 (17:00→17:24)
[2020-09-10] MEDS: SENNOSIDES 1 TABLET PO SCH (20:04)
[2020-09-10 20:15] VITALS: BP 110/38
[2020-09-11 07:30] VITALS: BP 135/78
[2020-09-11] MEDS: risperiDONE-M 0.5 MG TAB.RAPDIS PO SCH (08:00)
[2020-09-11] MEDS: GLUCERNA SHAKE VANILLA 237 ML CAN PO SCH ×2 (08:51→17:35)
[2020-09-11] MEDS: FERROUS SULFATE 325 MG TABEC PO SCH ×2 (08:51→21:00)
[2020-09-11] MEDS: DOCUSATE SODIUM 100 MG CAPSULE PO SCH (08:51)
[2020-09-11] MEDS: DIVALPROEX SPRINKLE 125 MG CAP.SPRINK PO SCH ×2 (08:51→17:35)
[2020-09-11] MEDS: CEphaleXIN 500 MG CAPSULE PO SCH ×2 (08:51→17:35)
--- NOTE | 2020-09-11 11:39 | NUR ---
BERONICA Family Contact: BERONICA spoke with patient's daughter, Tessa Iqbal ([phone]) to inform her pt will be discharged tomorrow to [facility]. Daughter agreed with discharge plan.
--- NOTE | 2020-09-11 13:54 | NUR ---
GROUP NOTE: SW encouraged pt to attend group therapy. Pt was in the activity room with his head down on the table and did not engage with SW. Pt is confused, disorganized, and disoriented.
[2020-09-11 16:00] VITALS: BP 131/43
[2020-09-11] MEDS: risperiDONE 1 MG TABLET PO SCH (17:00)
[2020-09-11 20:00] VITALS: BP 142/47
[2020-09-11] MEDS: SENNOSIDES 1 TABLET PO SCH (21:00)
--- NOTE | 2020-09-11 22:00 | NUR ---
Patient refused Feosol and senokot. multiple redirection given, yet ineffective. will continue to monitor.
[2020-09-12 07:30] VITALS: BP 124/44
[2020-09-12] MEDS: risperiDONE-M 0.5 MG TAB.RAPDIS PO SCH (08:00)
[2020-09-12] MEDS: GLUCERNA SHAKE VANILLA 237 ML CAN PO SCH (08:34)
--- NOTE | 2020-09-12 08:38 | NUR ---
SW DISCHARGE NOTE: Pt will be discharged at 12:00pm via [facility] to [facility] ([facility] [address] [facility] [address] [address] . Patient's daughter, Tessa Iqbal ([phone]) has been notified and agrees with discharge plan. Pts mood is anxious with congruent affect. Pt denied visual/auditory hallucinations and denied suicidal/homicidal ideation. Pt is alert and oriented x2, to self and place, is ambulatory and appropriately dressed and groomed. Pt will be under the care of Psychiatrist: Dr. Marline Mckeon [address], [place] [address] and Clinical Marketing Manager: Dr. Kamron Bailey Address: [address] [facility] [address] [address] . The multidisciplinary exit care form was done, printed, signed, and given to the patient.
[2020-09-12] MEDS: DOCUSATE SODIUM 100 MG CAPSULE PO SCH (08:41)
[2020-09-12] MEDS: CEphaleXIN 500 MG CAPSULE PO SCH (08:41)
[2020-09-12] MEDS: FERROUS SULFATE 325 MG TABEC PO SCH (08:41)
[2020-09-12] MEDS: DIVALPROEX SPRINKLE 125 MG CAP.SPRINK PO SCH (08:41)
--- NOTE | 2020-09-12 13:00 | NUR ---
Pt is being discharged back to [facility], via ambulance. Pt is aware and willing to go. Pt is calm on approach. No agitation. VS are stable. All belongins returned, paperwork signed. Report given to JOVANI Anaya
== END 2020-09-12 12:50 | DRG 885 ==
LOC: ER 14:23 → GPS 16:59
PROVIDERS: ADMIT Psychiatry & Neurology Psychosomatic Medicine
DX: F25.9 Schizoaffective disorder, unspecified (principal); F01.50 Vascular dementia, unspecified severity, without behavioral disturbance, psychotic disturbance, mood disturbance, and anxiety; N18.30 Chronic kidney disease, stage 3 unspecified; N17.0 Acute kidney failure with tubular necrosis; F02.81 Dementia in other diseases classified elsewhere, unspecified severity, with behavioral disturbance; G30.9 Alzheimer's disease, unspecified; E11.22 Type 2 diabetes mellitus with diabetic chronic kidney disease; F39 Unspecified mood [affective] disorder; F41.9 Anxiety disorder, unspecified; K21.9 Gastro-esophageal reflux disease without esophagitis; D63.1 Anemia in chronic kidney disease; Z85.819 Personal history of malignant neoplasm of unspecified site of lip, oral cavity, and pharynx
CPT/HCPCS: 36415; 71045; 80164; 84156; 84300; 85025; 87086; 93005; G0480; J3490